=== PATIENT | female | born 1945 | race Caucasian/White ===

== ENCOUNTER 2016-04-20 15:57 | Emergency (ER) | payer MEDICARE ==
[~2016-04-20] VITALS: Ht 154.9 cm; Wt 59.0 kg
[2016-04-20] MEDS ORDERED: IV NORMAL SALINE 1000ML BAG 1,000 ML IV SCH (16:19)
[2016-04-20 16:52] LABS: BASO # 0.1 x10^3/uL (0.0-0.2); BASO % 1 % (0-3); EOS % 2 % (0-3); HEMATOCRIT 41.5 % (36.0-47.0); HEMOGLOBIN 13.8 g/dL (12.0-15.5); LYMPH # 1.7 x10^3/uL (1.0-4.8); LYMPH % 23 % (24-48); MEAN CORPUSCULAR HEMOGLOBIN 28 pg (25-35); MEAN CORPUSCULAR HGB CONC 33 g/dL (31-37); MEAN CORPUSCULAR VOLUME 83 fL (79-100); MONO % 8 % (0-9); NEUT % 66 % (31-73); PLATELET COUNT 437 x10^3/uL (140-400); RED BLOOD COUNT 4.99 x10^6/uL (3.50-5.40); WHITE BLOOD COUNT 7.3 x10^3/uL (4.0-11.0)
[2016-04-20 17:10] LABS: BILIRUBIN,URINE NEGATIVE (NEG); GLUCOSE,URINE NEGATIVE (NEG); NITRITE,URINE NEGATIVE (NEG); PH,URINE 6.5; PROTEIN,URINE NEGATIVE (NEG-TRACE); UROBILINOGEN,URINE 0.2 mg/dL (0.2 mg/dL)
[2016-04-20 17:12] LABS: CALCIUM 9.1 mg/dL (8.5-10.1); CREATININE 0.7 mg/dL (0.6-1.0); GFR 83.2; POTASSIUM 3.1 mmol/L (3.5-5.1)
[2016-04-20 17:14] LABS: BACTERIA,URINE FEW /HPF (0-FEW); RBC,URINE 0 /HPF (0-2); SQUAMOUS EPITHELIAL CELL,UR FEW /LPF
[2016-04-20 17:17] LABS: ALBUMIN 3.5 g/dL (3.4-5.0); ALBUMIN/GLOBULIN RATIO 0.9 (1.0-1.7); TOTAL BILIRUBIN 0.4 mg/dL (0.2-1.0); TOTAL PROTEIN 7.3 g/dL (6.4-8.2)
[2016-04-20 17:28] LABS: OBC FLU VALID
--- NOTE | 2016-04-20 18:52 | PHYS DOC ---
Past Medical History Past Medical History: Asthma, Endometriosis, Hypertension Additional Past Medical Histor: RHEUMATIC FEVER A CHILD, HEART MURMUR Past Surgical History: Hysterectomy, Oophorectomy Alcohol Use: None Drug Use: None Adult General Chief Complaint Chief Complaint: DIZZY/LIGHT HEADED HPI HPI Patient is a 70 year old female who presents here today with flulike symptoms. Patient reports that her grandchildren have the flu and she feels like she is calling as well. Patient reports that she felt dizzy and felt like she might pass out earlier today after coughing. Patient reports that she had sharp pleuritic right-sided chest pain with coughing. Patient reports shortness of breath with coughing. Patient reports actually no fevers shaking chills. Patient reports she been having some nausea with no vomiting. Patient reports she's been having 3 loose bowel movements today. Patient reports she got a white productive cough. Patient complains of a sore throat. Patient complains of left ear pain. Patient denies any rash. Patient denies any other symptomatology at this time. Patient has any radiating pain to her jaw or arm or back. Patient denies any pain with exertion. Patient reports her chest pain only occurs with deep inspiration and coughing. Patient's past medical history significant for hypertension, asthma, rheumatic fever. Patient has no diabetes liver or kidney problems. Patient has no history of coronary artery disease. Patient has had no strokes in the past. Patient is allergic to codeine. Patient does not smoke or drink. Agents ER workup has been unremarkable. Patient's labs are normal. Patient's normal chest x-ray. Patient's influenza test was negative. A/P this is 70-year-old female who presents here today with flulike symptoms patient's workup in the ER is negative. Patient is clinically and hemodynamically stable. Patient's pulse ox is 99%. Patient's chest x-ray is clear. Patient's insulin the test were negative. Patient's lightweights and CBC were all within normal limits. Patient is clinically and hemodynamically stable for discharge to home. Review of Systems Review of Systems Constitutional: Denies fever or chills [] Eyes: Denies change in visual acuity, redness, or eye pain [] All other review systems are negative except as documented in the history of present illness portion. Current Medications Current Medications Current Medications Medications (Trade) Dose Ordered Sig/Steven Start Time Stop Time Status Last Admin Dose Admin Sodium Chloride (Iv Sodium Chloride 0.9% 1000ml Bag) 1,000 ml @ 1,000 mls/hr Q1H 04/20/16 16:19 04/20/16 17:18 DC 04/20/16 16:53 1,000 MLS/HR Allergies Allergies Allergies Coded Allergies Type Severity Reaction Last Updated Verified codeine Allergy Unknown N/V 04/20/16 No erythromycin base Allergy Unknown "BOTHERS MY HEART" 04/20/16 No Physical Exam Physical Exam Constitutional: Well developed, well nourished, no acute distress, non-toxic appearance. [] HENT: Normocephalic, atraumatic, bilateral external ears normal, oropharynx moist and erythematous, no oral exudates, nose normal. [] Eyes: PERRLA, EOMI, conjunctiva normal, no discharge. [] Neck: Normal range of motion, no tenderness, supple, no stridor. [] Cardiovascular:Heart rate regular rhythm, Lungs & Thorax: Bilateral breath sounds clear to auscultation [] Abdomen: Bowel sounds normal, soft, no tenderness, no masses, no pulsatile masses. [] Skin: Warm, dry, no erythema, no rash. [] Back: No tenderness, no CVA tenderness. [] Extremities: No tenderness, no cyanosis, no clubbing, ROM intact, no edema. [] Neurologic: Alert and oriented X 3, normal motor function, normal sensory function, no focal deficits noted. [] Psychologic: Affect normal, judgement normal, mood normal. [] Current Patient Data Vital Signs Vital Signs Date Time Temp Pulse Resp B/P Pulse Ox O2 Delivery O2 Flow Rate FiO2 04/20/16 19:00 96 18 172/77 98 Room Air 04/20/16 15:57 98.6 98.6 Lab Values Laboratory Tests Test 04/20/16 16:30 04/20/16 16:45 04/20/16 16:58 Influenza Type A Antigen Negative (NEGATIVE) Influenza Type B Antigen Negative (NEGATIVE) White Blood Count 7.3x10^3/uL (4.0-11.0) Red Blood Count 4.99x10^6/uL (3.50-5.40) Hemoglobin 13.8g/dL (12.0-15.5) Hematocrit 41.5% (36.0-47.0) Mean Corpuscular Volume 83fL (79-100) Mean Corpuscular Hemoglobin 28pg (25-35) Mean Corpuscular Hemoglobin Concent 33g/dL (31-37) Red Cell Distribution Width 13.0% (11.5-14.5) Platelet Count 437x10^3/uL (140-400) H Neutrophils (%) (Auto) 66% (31-73) Lymphocytes (%) (Auto) 23% (24-48) L Monocytes (%) (Auto) 8% (0-9) Eosinophils (%) (Auto) 2% (0-3) Basophils (%) (Auto) 1% (0-3) Neutrophils # (Auto) 4.8x10^3uL (1.8-7.7) Lymphocytes # (Auto) 1.7x10^3/uL (1.0-4.8) Monocytes # (Auto) 0.6x10^3/uL (0.0-1.1) Eosinophils # (Auto) 0.2x10^3/uL (0.0-0.7) Basophils # (Auto) 0.1x10^3/uL (0.0-0.2) Sodium Level 143mmol/L (136-145) Potassium Level 3.1mmol/L (3.5-5.1) L Chloride Level 104mmol/L (98-107) Carbon Dioxide Level 31mmol/L (21-32) Anion Gap 8 (6-14) Blood Urea Nitrogen 15mg/dL (7-20) Creatinine 0.7mg/dL (0.6-1.0) Estimated GFR (Cockcroft-Gault) 83.2 BUN/Creatinine Ratio 21 (6-20) H Glucose Level 109mg/dL (70-99) H Calcium Level 9.1mg/dL (8.5-10.1) Total Bilirubin 0.4mg/dL (0.2-1.0) Aspartate Amino Transferase (AST) 16U/L (15-37) Alanine Aminotransferase (ALT) 27U/L (14-59) Alkaline Phosphatase 83U/L (46-116) Troponin I Quantitative < 0.017ng/mL (0.000-0.055) Total Protein 7.3g/dL (6.4-8.2) Albumin 3.5g/dL (3.4-5.0) Albumin/Globulin Ratio 0.9 (1.0-1.7) L Urine Collection Type Unknown Urine Color Yellow Urine Clarity Clear Urine pH 6.5 Urine Specific [place] 1.015 Urine Protein Negativemg/dL (NEG-TRACE) Urine Glucose (UA) Negativemg/dL (NEG) Urine Ketones (Stick) Negativemg/dL (NEG) Urine Blood Negative (NEG) Urine Nitrite Negative (NEG) Urine Bilirubin Negative (NEG) Urine Urobilinogen Dipstick 0.2mg/dL (0.2 mg/dL) Urine Leukocyte Esterase Moderate (NEG) Urine RBC 0/HPF (0-2) Urine WBC 1-4/HPF (0-4) Urine Squamous Epithelial Cells Few/LPF Urine Bacteria Few/HPF (0-FEW) Urine Mucus Mod/LPF Laboratory Tests 04/20/16 16:45 Laboratory Tests 04/20/16 16:45 EKG EKG EKG reveals normal sinus rhythm at a heart rate of 90 with no evidence of acute ischemia. Patient has normal intervals. This is interpreted by me. [] Radiology/Procedures Radiology/Procedures [] Patient's chest x-ray reveals normal heart size. No infiltrates or effusions. This is interpreted by me. Course & Med Decision Making Course & Med Decision Making Pertinent Labs and Imaging studies reviewed. (See chart for details) [] Dragon Disclaimer Dragon Disclaimer This electronic medical record was generated, in whole or in part, using a voice recognition dictation system. Departure Departure Impression: Primary Impression: Viral illness Additional Impressions: Pre-syncope Dehydration Disposition: 01 HOME, SELF-CARE Condition: STABLE Referrals: ALEXANDER FLORES MD (PCP) Patient Instructions: Dehydration, Adult, Dizziness, Viral Pneumonia, Infant Problem Qualifiers ANIKA BERMAN MD Apr 20, 2016 18:52
[2016-04-20 19:00] VITALS: BP 172/77
--- NOTE | 2016-04-21 07:00 | EKG ---
[facility] [address] [place] [address] Test Date: 2016-04-20 Test Time: 16:36:25 Pat Name: ODALYS SHORT Department: Room: Gender: F [employer]: : 1945 Requested By: ANIKA BERMAN Order Number: [id number] Reading MD: Measurements Intervals [place] Rate: 89 P: 44 SD: 164 QRS: 30 QRSD: 94 T: 29 QT: 366 QTc: 452 Interpretive Statements SINUS RHYTHM NORMAL ECG RI6.01 No previous ECG available for comparison
--- NOTE | 2016-04-21 08:01 | RAD ---
Chest, 2 views, 04/20/2016: History: Cough Comparison is made to a study from 09/16/2005. The heart size and pulmonary vascularity are normal. There is calcific plaquing of the aorta. No pulmonary infiltrates are seen. There is no evidence of pleural fluid. Mild spurring is present in the spine. IMPRESSION: No acute cardiopulmonary abnormality is detected.
== END 2016-04-20 19:02 | disposition home or self-care (01) ==
LOC: ER 15:57
DX: B34.9 Viral infection, unspecified (principal); R55 Syncope and collapse; E86.0 Dehydration; R07.81 Pleurodynia; R19.7 Diarrhea, unspecified; R06.02 Shortness of breath; J02.9 Acute pharyngitis, unspecified; H92.02 Otalgia, left ear; I10 Essential (primary) hypertension; J45.909 Unspecified asthma, uncomplicated; Z88.5 Allergy status to narcotic agent; Z88.1 Allergy status to other antibiotic agents
CPT/HCPCS: 36415; 71020; 80053; 81001; 84484; 85027; 87086; 87804; 93005; 96360; 96361; 99285; J7030

== ENCOUNTER → 2020-05-03 | Outpatient (CLI) | payer MEDICARE ==
--- NOTE | 2020-05-03 15:32 | CARD ---
MR#: [id number] Date of Study: 05/03/2020 Ordering Physician: ALEXANDER FLORES, Referring Physician: ALEXANDER FLORES, Tech: Yaritza Anderson RDCS APPROVED REPORT EXAM: Two-dimensional and M-mode echocardiogram with Doppler and color Doppler. Other Information Quality : Good INDICATION Murmur 2D DIMENSIONS RVDd2.4 (2.9-3.5cm)Left Atrium(2D)2.9 (1.6-4.0cm) IVSd1.4 (0.7-1.1cm)Aortic Root(2D)2.7 (2.0-3.7cm) LVDd3.3 (3.9-5.9cm)LVOT Diameter1.8 (1.8-2.4cm) PWd1.1 (0.7-1.1cm)LVDs2.5 (2.5-4.0cm) FS (%) 30.0 %SV22.5 ml LVEF(%)60.0 (>50%) M-Mode DIMENSIONS Aortic Cusp Exc1.23 (1.5-2.0cm) Aortic Valve AoV Peak Fareed.240.0cm/sAoV VTI37.9cm AO Peak GR.23.0mmHgLVOT Peak Fareed.97.2cm/s LVOT VTI 22.48cmAO Mean GR.14mmHg CHRIST (VMAX)1.41gg5APL (VTI)1.27cm2 Mitral Valve MV E Lpwlimdk02.9cm/sMV DECEL APAN350ko MV A Hshjmxjr235.0cm/sMV YHO66yr E/A Ratio0.8MVA (PHT)3.48cm2 TDI E/Lateral E'10.2E/Medial E'15.4 Tricuspid Valve TR P. Bkacfzdh570ya/sRAP CUSYZZUK6dbNp TR Peak Gr.78gnMeUDLZ42xzTq Pulmonary Vein S1 Aulgxjic68.4cm/sD2 Qtkacxfo41.6cm/s LEFT VENTRICLE The left ventricle is normal size. There is mild asymmetric septal hypertrophy. The left ventricular systolic function is normal. The Ejection Fraction is 55-60%. There is normal LV segmental wall motio n. Transmitral Doppler flow pattern is Grade I-abnormal relaxation pattern. RIGHT VENTRICLE The right ventricle is normal size. The right ventricular systolic function is normal. ATRIA The left atrium size is normal. The right atrium size is normal. The atrial septum is aneurysmal but no indication of an ASD or PFO. AORTIC VALVE The aortic valve is calcified and displays decreased opening. Doppler and Color Flow revealed no sign ificant aortic regurgitation. Calculated aortic valve area is 1.27 cm2 with maximum pressure gradient of 23 mmHg and mean pressure gradient of 14 mmHg. Doppler and color-flow analysis revealed mild aort ic stenosis. MITRAL VALVE The mitral valve is calcified but opens well. Mitral annular calcification is mild. There is no evide nce of mitral valve prolapse. There is no mitral valve stenosis. Doppler and Color-flow revealed trac e to mild mitral regurgitation. TRICUSPID VALVE The tricuspid valve is normal in structure and function. Doppler and Color Flow revealed mild tricusp id regurgitation. The PA pressure was estimated at 28 mmHg. There is no tricuspid valve stenosis. PULMONIC VALVE The pulmonic valve is not well visualized. Doppler and Color Flow revealed no pulmonic valvular regur gitation. There is no pulmonic valvular stenosis. GREAT VESSELS The aortic root is normal in size. The ascending aorta is not well seen. The IVC is normal in size an d collapses >50% with inspiration. PERICARDIAL EFFUSION There is no evidence of significant pericardial effusion. Critical Notification Critical Value: No <Conclusion> The left ventricular systolic function is normal. The Ejection Fraction is 55-60%. Transmitral Doppler flow pattern is Grade I-abnormal relaxation pattern. Mild aortic stenosis. Trace to mild mitral regurgitation. Mild tricuspid regurgitation. The PA pressure was estimated at 28 mmHg. There is no evidence of significant pericardial effusion. Signed by : Edgar Monroy, Electronically Approved : 05/03/2020 15:32:09
== END ==
LOC: ECHO 13:49
PROVIDERS: ATTEND Family Medicine
DX: I08.3 Combined rheumatic disorders of mitral, aortic and tricuspid valves (principal)
CPT/HCPCS: 93306